=== PATIENT | female | born 1965 | race Caucasian/White ===

== ENCOUNTER 2021-03-07 19:16 | Emergency (ER) | payer BC ==
[2021-03-07 20:38] LABS: RED BLOOD COUNT 4.77 M/UL (4.00-5.10); WHITE BLOOD COUNT 13.3 K/UL (4.5-11.0)
[2021-03-07 21:02] LABS: BUN/CREATININE RATIO 21 (0-10)
== END 2021-03-07 22:30 | disposition home or self-care (01) ==
LOC: ER1 19:16
PROVIDERS: Family Medicine
DX: R10.11 Right upper quadrant pain (principal); E87.6 Hypokalemia; R03.0 Elevated blood-pressure reading, without diagnosis of hypertension; R73.9 Hyperglycemia, unspecified; J45.909 Unspecified asthma, uncomplicated; Z90.49 Acquired absence of other specified parts of digestive tract; Z79.01 Long term (current) use of anticoagulants
CPT/HCPCS: 71045; 80053; 81001; 82550; 82553; 83690; 83874; 84484; 85025; 93005; 96374; 96375; 99284; J2270; J2405